=== PATIENT | female | born 1980 | race Two or more races ===

== ENCOUNTER 2020-07-03 07:27 | Outpatient (REF) | payer OTHER, SELFPAY ==
[2020-07-03 08:26] LABS: Glucose Urine UA NEG (NEG); Leukocyte Esterase Urine TRACE (NEG); Nitrite Urine POS (NEG); PH 6.5 (5.0-8.0); Urine Blood 3+ (NEG); Urine Ketones NEG (NEG); Urine Protein NEG (NEG-TRACE)
[2020-07-03 08:38] LABS: Appearance Urine HAZY; Color Urine STRAW
[2020-07-03 08:48] LABS: Bacteria Urine 4+ /LPF; Squamous Epithelial Cell Urine 2+ /LPF
[2020-07-03 09:39] LABS: Alanine Aminotransferase 18 U/L (0-31); Albumin Level 4.4 g/dL (3.5-5.0); Alkaline Phosphatase 54 U/L (39-117); Anion Gap 15 (12-20); Aspartate Amino Transferase 18 U/L (5-31); Bilirubin Total 0.6 mg/dL (0.0-1.0); Blood Urea Nitrogen 8 mg/dL (9-16); Calcium 9.3 mg/dL (8.4-10.2); Carbon Dioxide 24 mmol/L (22-29); Chloride 104 mmol/L (96-108); Cholesterol 178 mg/dL; Estimated Glomerular Filt Rate > 60; Glucose Fasting 87 mg/dL (60-99); HDL Cholesterol 52 mg/dL; LDL Cholesterol Calculated 109 mg/dl; Potassium 4.4 mmol/l (3.3-5.1); Sodium 139 mmol/L (135-145); Total Protein 7.4 g/dL (6.5-8.0); Triglycerides 89 mg/dL
== END 2020-07-03 07:28 | disposition home or self-care (01) ==
LOC: HO.LAB 07:27
PROVIDERS: PCP Internal Medicine; Visit Provider Internal Medicine
DX: E78.5 Hyperlipidemia, unspecified (principal); Z83.3 Family history of diabetes mellitus; R30.0 Dysuria
CPT/HCPCS: 36415; 80053; 80061; 81001; 87086; 87088; 87186

== ENCOUNTER 2020-07-09 17:23 | Outpatient (REF) | payer OTHER, SELFPAY | END 2020-07-09 17:24 | disposition home or self-care (01) | LOC: HO.LAB 17:23 | PROVIDERS: PCP Internal Medicine; Visit Provider Internal Medicine | DX: Z20.822 Contact with and (suspected) exposure to COVID-19 (principal) | CPT/HCPCS: 36415; C9803; U0003 ==

== ENCOUNTER → 2020-10-04 13:09 | Outpatient (REF) | payer OTHER, SELFPAY ==
--- NOTE | 2020-10-04 13:20 | ECG_ITS ---
Hook-up date: 2020-10-04 13:28:00 Duration: 47:59:00 Test Indications: PALPITATIONS Medications: [id number] QRS complexes 1 Ventricular ectopics which represent <1 % of total QRS comp. 92 Supraventricular ectopics which represent <1 % of total QRS comp. * Paced QRS complexs which represent % of total QRS comp. VENTRICULAR ECTOPY 1 Isolated 0 Bigeminal Cycles 0 Couplets 0 Runs 0 Beats in Runs * Beats LONGEST at * BPM at :: -- * Beats FASTEST at * BPM at :: -- SUPRAVENTRICULAR ECTOPY 79 Isolated 4 Couplets 1 Runs 5 Beats in Runs 5 Beats LONGEST at 151 BPM at 16:20:57 2020-10-05 5 Beats FASTEST at 151 BPM at 16:20:57 2020-10-05 HEART RATES 56 MIN at 22:16:34 2020-10-04 79 AVG 132 MAX at 16:57:14 2020-10-04 LONGEST RR 1.7840 secs at 22:16:30 2020-10-04 S-T LEVELS Channel 1 - 128 mm at 13:28:00 2020-10-04 - 128 mm at 13:28:00 2020-10-04 Channel 2 - 128 mm at 13:28:00 2020-10-04 - 128 mm at 13:28:00 2020-10-04 Channel 3 - 128 mm at 03:24:71 -- - 128 mm at 03:24:71 Underlying rhythm is sinus; Average rate 78/min; range 56-132/min; Occasional supraventricular ectopy; mostly isolated; one short run of 5 beats; Transient AV block (one episode) during sleep hours; Longest pause 1.78sec (sleep hours); No sustained arrhythmias; Patient did not report any symptoms in the diary Referred By: Dana Estes Overread By: ISIDRO VASQUEZ
== END ==
LOC: HO.CARD 13:09
PROVIDERS: PCP Internal Medicine; Visit Provider Internal Medicine
DX: R00.2 Palpitations (principal)
CPT/HCPCS: 93225; 93226

== ENCOUNTER 2021-05-07 15:00 | Outpatient (RCR) | payer OTHER, SELFPAY ==
--- NOTE | 2021-04-23 10:58 | MHC.PT.EP ---
[facility] [place] Office [place] Office [place] Office [address] Christina Brito [address] [phone] F: [phone] F: [phone] F: [phone] F: [phone] Physical Therapy Plan of Care Date of Evaluation: Date of Surgery: Diagnosis: Dorsalgia,unspecified Assessment: Pt is a 40yo F who presents to PT with pain for about ~1-2 months throughout her neck/shoulder/back. She reports she was working from home and the pain increased when she returned to her office about ~2 months ago as she works at a computer most of the day. She presents with current impairments in pain, decreased ROM throughout neck/B shoulders/back, decreased strength, soft tissue restrictions, and impaired posture. She has intermittent radiating symptoms into her RUE. She is limited functionally by prolonged sitting, prolonged standing and walking, driving and sleeping. She is a good candidate for skilled PT services to address current impairments in order to facilitate return to PLOF. She will benefit from PT services 2x/week for 4 weeks and will be re-assessed at that time. Frequency and Duration: The patient will be seen 2x/week for 4 weeks Short Term Goals: Pt will be I with HEP to promote self management of symptoms Pt will demonstrate improvements in postural awareness throughout the day Pt will report pain 8/10 or less after ADLs Chemistry Associate Goals: Pt will tolerate sitting >30 min with pain < 5/10 to assist with work related tasks Pt will demonstrate improvements in functional mobility as evidenced by statistically significant improvement in Modified Oswestry Low Back Pain Disability Questionnaire Treatment Plan: Modalities to reduce pain, spasms and effusion. Manual therapy to restore motion and function. Therapeutic exercise to improve strength and flexibility. Neuromuscular re-education for posture and balance. Therapeutic activities to return to functional activities of daily living. Electronically signed by: Cathi Perla, PT, DPT Please sign and return to therapist. Thank you for your referral.
--- NOTE | 2021-05-20 15:45 | MHC.PT.DC ---
[facility] [place] Office [place] Office [place] Office [address] Christina Brito [address] [phone] F: [phone] F: [phone] F: [phone] F: [phone] Physical Therapy Discharge Report Diagnosis: Dorsalgia,unspecified Date of Surgery: Date of Evaluation: 04/22/21 Date of Discharge: 05/20/21 Treatments to Date: 5 Cancellations to Date: 1 No Shows to Date: 3 Discharge Status: Visit Non-compliance Discharge Summary: Pt last attended skilled PT visit was 05/12/21. She has had 1 cancellation and 3 no-shows since last attended visit. [place] is being [place] [facility] [place] and visit non-compliance. Pt current level of function unknown at this time. Electronically signed by: Cathi Perla, PT, DPT Please sign and return to therapist. Thank you for your referral.
== END 2021-05-20 15:42 | disposition home or self-care (01) ==
LOC: HO.PT 15:00
PROVIDERS: PCP Internal Medicine; Visit Provider Internal Medicine
DX: M54.9 Dorsalgia, unspecified (principal)
CPT/HCPCS: 97110; 97140; 97150; 97162

== ENCOUNTER 2021-07-10 14:46 | Outpatient (REF) | payer OTHER, SELFPAY ==
[2021-07-10 15:59] LABS: Binax Internal Control QC Valid; Binax Now Covid-19 Ag Positive (Negative)
== END 2021-07-10 14:47 | disposition home or self-care (01) ==
LOC: HO.LAB 14:46
PROVIDERS: Visit Provider Internal Medicine
DX: Z20.822 Contact with and (suspected) exposure to COVID-19 (principal)
CPT/HCPCS: C9803

== ENCOUNTER 2021-07-15 14:36 | Emergency (ER) | payer OTHER, SELFPAY ==
--- NOTE | ~2021-07-15 | XR_ITS ---
EXAMINATION: XR CHEST CLINICAL INFORMATION: Cough and shortness of breath. Covid positive COMPARISON: None TECHNIQUE: Frontal view of the chest was obtained. FINDINGS: No significant abnormality is noted involving the heart, lungs, mediastinum, bony thorax or soft tissues. XR/XR chest 1V IMPRESSION: Unremarkable examination.
[2021-07-15 15:27] VITALS: BP 131/84; PULSE 117; RESP 18; TEMP 37.2; O2SAT 98; BMI 27.4
--- NOTE | 2021-07-15 16:47 | ED.URI ---
HPI - URI/Sore Throat General Chief Complaint: Upper Respiratory Symptoms Stated Complaint: dif breathing COVID+ Time Seen by Provider: 07/15/21 16:02 Source: patient Mode of arrival: ambulatory Limitations: no limitations History of Present Illness HPI Narrative: 40-year-old female came in for evaluation of shortness of breath. Patient was diagnosed COVID positive 5 days ago, return today for persistent coughing and sore throat and shortness of breath. Patient has no appetite to eat but able to keep fluids down. Patient declined any recent travel, known lower extremities swelling or tenderness, chest pain only with coughing. Related Data Previous Rx's Medication Instructions Recorded sumatriptan succinate 50 mg tablet 50 mg PO Q2-4H PRN 30 Days #9 tab 01/08/21 cyclobenzaprine 10 mg tablet 10 mg PO BEDTIME #14 tab 02/05/21 meloxicam 15 mg tablet 15 mg PO DAILY #14 tab 02/05/21 amitriptyline 10 mg tablet 10 mg PO BEDTIME #30 tab 05/07/21 codeine 10 mg-guaifenesin 100 mg/5 5 ml PO Q6H PRN #120 ml 07/15/22 mL oral liquid codeine 6.3 mg-guaifenesin 100 10 ml PO Q4-6H PRN #473 ml 07/15/22 mg/5 mL oral liquid codeine 6.3 mg-guaifenesin 100 10 ml PO Q4-6H PRN #473 ml 18/22 mg/5 mL oral liquid codeine 7.5 mg-guaifenesin 225 5 ml PO Q6H PRN #473 ml 18/22 mg/5 mL oral liquid Allergies Allergy/AdvReac Type Severity Reaction Status Date / Time No Known Allergies Allergy Verified 08/19/20 13:23 Review of Systems Review of Systems: All other systems are reviewed and are negative Constitutional: Reports as per HPI and Reports no additional constitutional complaints Eyes: Reports as per HPI and Reports no additional eye complaints Reports system reviewed and no additional complaints, except as documented Cardiovascular: Reports as per HPI and Reports no additional cardiovascular complaints Respiratory: Reports as per HPI and Reports no additional respiratory complaints Gastrointestinal: Reports as per HPI and Reports no additional gastrointestinal complaints Genitourinary: Reports no additional female genitourinary complaints Musculoskeletal: Reports no additional musculoskeletal complaints Skin/Breast: Reports system reviewed and no additional complaints, except as docu Psychiatric: Reports no additional psychiatric complaints Endocrine: Reports no additional endocrine complaints Hematologic/Lymphatic: Reports no additional hematologic/lymphatic complaints Allergic/Immunologic: Reports no additional allergic/immunologic complaints Reports system reviewed and no additional complaints, except as documented and Reports Abnormal speech present [facility] Past Medical History Medical History Back pain Family history of diabetes mellitus Migraines Neck pain Palpitations Palpitations Surgical History History of appendectomy History of section Family History Family History Father Liver failure Alcoholism Mother No problems noted. Maternal Grandmother Hypertension Maternal Grandfather Hypertension Social History Social History Alcohol intake: never Advance Directives: No Advance Directives Information Provided: No Physical Exam Vital Signs: Vital Signs: Last Vital Signs Temp 98.9 F 07/15/21 15:27 Pulse 117 H 07/15/21 15:27 Resp 18 07/15/21 15:27 BP 131/84 07/15/21 15:27 Pulse Ox 98 07/15/21 15:27 BMI result Body Mass Index 27.4 Vital signs have been reviewed as appeared to be correct. Blood pressure normal. Heart rate elevated. Respiration rate normal. Temperature normal. Oxygen saturation normal. Appearance: Alert. Oriented X3. No acute distress. Head: Normal external exam. Normocephalic. Atraumatic. No Petty signs noted. No raccoon eyes noted Eyes: PERRLA. EOMI. Conjunctiva and sclera normal. Eyelids normal. ENT: TM's Normal. Pharynx normal. Uvula midline. Moist mucous membranes. No trismus noted. No drooling noted. No muffled voice noted. Neck: Normal inspection. Neck supple. FROM. No adenopathy. Thyroid Normal. No meningeal signs. No neck mass noted. CVS: Normal heart rate and rhythm. Heart sound normal. No murmurs noted. Pulses normal throughout. Respiratory: No respiratory distress. Painless inspiration. Breath sounds normal. No wheezes/rales/rhonchi noted. Chest nontender. No accessory muscle usage noted or decreased air movement noted. Abdomen: Soft and nontender. Bowel sounds normal in all 4 quadrants. No distention noted. No organomegaly noted. No visible injury noted. Back: No CVA tenderness. Full range of motion noted. Skin: Skin warm and dry. Normal skin color. Normal skin turgor. No rashes/lesions/lacerations noted. Extremities: No lower extremity edema. Extremities exhibit normal range of motion. Extremities nontender. Neuro: Oriented X 3. Cranial nerve exam: II-XII are grossly intact No motor deficit. No sensory deficit. Reflexes normal. Course Course Course Narrative: Assessment and plan. 40-year-old female test positive for COVID 4 days ago, returned today for persistent of coughing and generalized weakness with decreased appetite. X-ray show no abnormality. Patient's oxygenation is 98% on room air. Will prescribe coughing medicine and NSAIDs. MDM - URI/Sore Throat Imaging Data Chest x-ray: Attestation: I personally reviewed and interpreted this imaging study as follows: Radiologist's impression: No acute pathology. Discharge Plan Discharge Clinical Impression: COVID-19 virus infection Patient Disposition: Home, Self-Care Instructions: COVID-19 (Coronavirus Disease 2019) (ED) Prescriptions: New codeine-guaifenesin 6.3-100 mg/5 mL liquid 10 ml PO Q4-6H PRN (Reason: allergy symptoms) Qty: 473 RF: 0 codeine-guaifenesin 6.3-100 mg/5 mL liquid 10 ml PO Q4-6H PRN (Reason: cough) Qty: 473 RF: 0 codeine-guaifenesin 7.5-225 mg/5 mL liquid 5 ml PO Q6H PRN (Reason: cough) Qty: 473 RF: 0 codeine-guaifenesin 10-100 mg/5 mL liquid 5 ml PO Q6H PRN (Reason: cough) Qty: 120 RF: 0 No Action sumatriptan succinate 50 mg tablet 50 mg PO Q2-4H PRN (Reason: migraine headache) 30 Days Qty: 9 RF: 6 amitriptyline 10 mg tablet 10 mg PO BEDTIME Qty: 30 RF: 3 cyclobenzaprine 10 mg tablet 10 mg PO BEDTIME Qty: 14 RF: 0 meloxicam 15 mg tablet 15 mg PO DAILY Qty: 14 RF: 0 Referrals: Physician,Unknown J [Primary Care Provider] - 1 week Stand Alone Forms: Work/School Release
[2021-07-15] MEDS: Ibuprofen 800 MG TABLET PO (17:08)
[2021-07-15 17:59] VITALS: BP 128/74; PULSE 117; O2SAT 96
== END 2021-07-15 18:12 | disposition home or self-care (01) ==
LOC: HO.ED 17:02
PROVIDERS: Emergency Provider Emergency Medicine
DX: U07.1 COVID-19 (principal)
CPT/HCPCS: 71045; 99283

== ENCOUNTER 2021-09-02 07:24 | Outpatient (REF) | payer OTHER, SELFPAY ==
[2021-09-02 07:40] LABS: MANUAL DIFF FLAG NO
[2021-09-02 08:04] LABS: Basophils Percent Auto 0.8 % (0-2); Eosinophils Absolute Auto 0.1 X10*3/uL (0.0-0.4); Eosinophils Percent Auto 1.3 % (0-4); Hematocrit 39.5 % (37.0-47.0); Hemoglobin 13.3 g/dl (12.0-16.0); Imm Gran Abs Auto 0.02 X10*3/uL (0.00-0.03); Imm Gran Pct Auto 0.4 % (0.0-0.4); Lymphocytes Absolute Auto 2.3 X10*3/uL (1.2-4.9); Lymphocytes Percent Auto 43.6 % (20-40); Mean Corpuscular HGB Conc 33.7 g/dl (31.0-35.0); Mean Corpuscular Hemoglobin 30.5 pg (27.0-33.0); Mean Corpuscular Volume 90.6 fL (80.0-98.0); Mean Platelet Volume 11.3 fL (9.4-12.3); Monocytes Absolute Auto 0.5 X10*3/uL (0.1-1.2); Monocytes Percent Auto 8.9 % (2-11); Neutrophils Absolute Auto 2.4 x10*3/uL (2.0-8.3); Platelet Count 305 X10*3/uL (160-400); Red Blood Count 4.36 X10*6/uL (4.20-5.50); Red Cell Distribution Width 12.9 % (11.0-16.0); White Blood Count 5.3 X10*3/uL (4.8-10.8)
[2021-09-02 08:26] LABS: Alanine Aminotransferase 15 U/L (0-31); Albumin Level 4.5 g/dL (3.5-5.0); Alkaline Phosphatase 54 U/L (39-117); Anion Gap 10 (12-20); Aspartate Amino Transferase 19 U/L (5-31); Bilirubin Total 0.7 mg/dL (0.0-1.0); Blood Urea Nitrogen 7 mg/dL (9-16); Calcium 9.7 mg/dL (8.4-10.2); Carbon Dioxide 29 mmol/L (22-29); Chloride 105 mmol/L (96-108); Estimated Glomerular Filt Rate > 60; Glucose Fasting 85 mg/dL (60-99); Potassium 4.3 mmol/L (3.3-5.1); Sodium 140 mmol/L (135-145); Total Protein 7.7 g/dL (6.5-8.0)
[2021-09-02 08:29] LABS: B Type Natriuretic Peptide 79 pg/mL (<100)
[2021-09-02 08:30] LABS: Color Urine YELLOW; Glucose Urine UA NEG (NEG); Leukocyte Esterase Urine NEG (NEG); Nitrite Urine NEG (NEG); UACC Culture Trigger NO; Urine Blood 2+ (NEG); Urine Ketones NEG (NEG); Urine Protein NEG (NEG-TRACE)
[2021-09-02 08:32] LABS: Appearance Urine HAZY
[2021-09-02 08:40] LABS: Mucus Urine TRACE /LPF; Squamous Epithelial Cell Urine 1+ /LPF; WBC Urine 0 /HPF (0-4)
[2021-09-06 13:21] LABS: Vitamin D 25-OH, D2 <4 ng/mL; Vitamin D 25-OH, D3 32 ng/mL; Vitamin D 25-OH, Total 32 ng/mL (30-100)
== END 2021-09-02 07:25 | disposition home or self-care (01) ==
LOC: HO.LAB 07:24
PROVIDERS: PCP Internal Medicine; Visit Provider Internal Medicine
DX: D64.9 Anemia, unspecified (principal); G43.909 Migraine, unspecified, not intractable, without status migrainosus; E55.9 Vitamin D deficiency, unspecified; R06.00 Dyspnea, unspecified
CPT/HCPCS: 36415; 80053; 81001; 82306; 83880; 85025

== ENCOUNTER 2022-05-12 09:46 | Outpatient (REF) | payer OTHER, SELFPAY ==
[2022-05-12 16:40] LABS: CT PCR NOT DETECTED (Not Detect.); NG PCR NOT DETECTED (Not Detect.)
[2022-05-13 13:56] LABS: BV Int Neg Control Negative (Negative); BV Int Pos Control Positive (Positive)
[2022-05-15 23:47] LABS: HPV mRNA E6/E7 rflx Not Detected (Not Detected)
== END 2022-05-12 09:47 | disposition home or self-care (01) ==
LOC: HO.LNP 09:46
PROVIDERS: Visit Provider Advanced Practice Midwife
DX: Z01.419 Encounter for gynecological examination (general) (routine) without abnormal findings (principal); Z11.51 Encounter for screening for human papillomavirus (HPV); R30.0 Dysuria
CPT/HCPCS: 87086; 87480; 87491; 87510; 87591; 87624; 87660; 88142

== ENCOUNTER 2022-06-12 08:50 | Outpatient (REF) | payer OTHER, SELFPAY ==
--- NOTE | ~2022-06-12 | MM_ITS ---
EXAMINATION: MM SCREENING DIGITAL BREAST TOMOSYNTHESIS, BILATERAL CLINICAL INFORMATION: Screening. Asymptomatic. The lifetime risk of breast cancer based on the Tyrer-Cuzick Model is 9%. COMPARISON: Mammography: 01/15/2020 (new baseline). TECHNIQUE: Digital breast tomosynthesis is performed in both the craniocaudal and mediolateral oblique views along with computer-aided detection (CAD). Synthesized 2D images are generated from the tomosynthesis. FINDINGS: The breasts are heterogeneously dense, which may obscure small masses (ACR BI-RADS breast composition Category c). Parenchymal pattern is similar to prior new baseline mammography. There is no significant mass or interval developing density or architectural abnormality. No abnormal calcifications. The axilla and skin contours are unremarkable. No significant changes. MM/MM tomosynthesis screening BI IMPRESSION: No mammographic evidence of malignancy. ASSESSMENT: BI-RADS 1: Negative RECOMMENDATION: Routine annual mammography screening. This patient's information was entered into a reminder system with a target due date for their next mammogram.
== END 2022-06-12 08:51 | disposition home or self-care (01) ==
LOC: HO.MAMMO 08:50
PROVIDERS: PCP Internal Medicine; Visit Provider Advanced Practice Midwife
DX: Z12.31 Encounter for screening mammogram for malignant neoplasm of breast (principal)
CPT/HCPCS: 77063; 77067

== ENCOUNTER 2022-07-14 14:11 | Outpatient (REF) | payer OTHER, SELFPAY ==
--- NOTE | ~2022-07-14 | XR_ITS ---
EXAMINATION: LUMBAR SPINE AND RIGHT SCAPULA. CLINICAL INFORMATION: Dorsalgia COMPARISON: None TECHNIQUE: 3 views lumbar spine and 3 views right scapula FINDINGS: Lumbar spine: There is mild straightening of lumbar lordosis. The vertebral heights and alignment is normal. No visible acute fracture, dislocation or subluxation seen. There is moderate stool seen throughout the colon. Right shoulder: The glenohumeral joint and AC joint space is maintained. The right scapula appears intact. No visible acute fracture, dislocation or subluxation seen. The soft tissues are normal. XR/XR scapula RT IMPRESSION: 1. Unremarkable lumbar spine exam. 2. Unremarkable right shoulder exam. 3. Unremarkable right scapula exam. 4. Moderate constipation. No visible acute fracture or dislocation seen.
--- NOTE | ~2022-07-14 | XR_ITS ---
EXAMINATION: LUMBAR SPINE AND RIGHT SCAPULA. CLINICAL INFORMATION: Dorsalgia COMPARISON: None TECHNIQUE: 3 views lumbar spine and 3 views right scapula FINDINGS: Lumbar spine: There is mild straightening of lumbar lordosis. The vertebral heights and alignment is normal. No visible acute fracture, dislocation or subluxation seen. There is moderate stool seen throughout the colon. Right shoulder: The glenohumeral joint and AC joint space is maintained. The right scapula appears intact. No visible acute fracture, dislocation or subluxation seen. The soft tissues are normal. XR/XR lumbar spine 2-3V IMPRESSION: 1. Unremarkable lumbar spine exam. 2. Unremarkable right shoulder exam. 3. Unremarkable right scapula exam. 4. Moderate constipation. No visible acute fracture or dislocation seen.
== END 2022-07-14 14:12 | disposition home or self-care (01) ==
LOC: HO.XRAY 14:11
PROVIDERS: PCP Internal Medicine; Visit Provider Internal Medicine
DX: M89.8X1 Other specified disorders of bone, shoulder (principal); M54.9 Dorsalgia, unspecified
CPT/HCPCS: 72100; 73010

== ENCOUNTER 2022-11-03 13:55 | Outpatient (REF) | payer OTHER, SELFPAY ==
[2022-11-06 04:18] LABS: HPV mRNA E6/E7 rflx Not Detected (Not Detected)
== END 2022-11-03 13:56 | disposition home or self-care (01) ==
LOC: HO.LNP 13:55
PROVIDERS: PCP Internal Medicine; Visit Provider Advanced Practice Midwife
DX: Z12.4 Encounter for screening for malignant neoplasm of cervix (principal); Z11.51 Encounter for screening for human papillomavirus (HPV); R87.615 Unsatisfactory cytologic smear of cervix
CPT/HCPCS: 87624; 88142; 99212

== ENCOUNTER 2023-01-04 14:10 | Outpatient (AMB) | payer OTHER, SELFPAY ==
--- NOTE | 2023-01-04 14:25 | MHC.OFFVIS ---
Intake Vital Signs 01/04/23 14:28 Height 5 ft 2 in Weight 141 lb BMI 25.8 BP 133/63 Blood Pressure Location Lt brachial Position Sitting Pulse 77 Intake Visit Reasons: Melena Intake Note: Deanna presents in the office as a new patient for melena. CC: She states that she is having blood in her stool. This came about when she had a virus back in October. After that she was having burning and pains in the stomach. It primarily happens when she eats fatty foods. Chief Legal Officer Required: Yes Chief Legal Officer Name: Kyrie [id number] Allergies No Known Allergies Allergy (Verified 01/04/23 14:33) HPI HPI Comments History of Present Illness Details This is a 42 y.o F with no significant PMH who is here for abdominal pain. Pt states that a few months she had a gi bug wth which she had significant abdominal cramping, N,V and diarrhea. Now all the sx are gone except she continues to have intermittent abd cramping with burning sensation. Occurs postprandially even when the food is not fatty or spicy. Assoc with constipation but does not think passing BM particularly helps with abd cramping. Taking juan tea helps. Fam hx pertinent for celiac dz in her mom. PFSH Medical History Back pain Dyspnea Family history of diabetes mellitus Migraines Neck pain Palpitations Palpitations Surgical History History of appendectomy History of section Family History Father Liver failure Alcoholism Substance use disorder Mother Osteoporosis Fibromyalgia Maternal Grandmother Hypertension Maternal Grandfather Hypertension Social History Household Members: Family Housing: Apartment Alcohol intake: never Patient Tobacco Use Status: Never used Tobacco e-Cigarette/Vaping Use: Never Used Second Hand Smoke Exposure: No service: No Current occupational status: employed Current occupation: Mental health therapist Sexual orientation: Straight/Heterosexual Gender identity: Female Cognitive needs: No Hearing needs: No Vision needs: No Review of Systems Const All systems reviewed & are unremarkable except as noted in HPI and below Physical Exam Vital Signs: Last Vital Signs Pulse 77 01/04/23 14:28 BP 133/63 01/04/23 14:28 BMI result Body Mass Index 25.8 Gen appear: NAD HEENT: nonicteric, no cervical lymphadenopathy Chest: CTA CVS: Regular S1/S2 Abd: soft, nontender, nondistended, bowel sounds + Ext: no peripheral edema Neuro: A/Ox3, noted to move all extremities spontaneously Psych: interacting appropriately Assessment & Plan Assessment & Plan (1) Abdominal pain: Code(s): R10.9 - Unspecified abdominal pain (2) Constipation: Code(s): K59.00 - Constipation, unspecified Plan Ddx include post-infectious IBS, GERD, GB disease, celiac. Work up ordered as below. Omeprazole 20mg prescribed as therapeutic trial. Also prescribed bentyl as per patient's request however she was advised that it may make constipation worse. Follow up in 6 weeks. Orders: Orders US abdomen complete Today R10.9 - Unspecified abdominal pain Immunoglobulin A Today R10.9 - Unspecified abdominal pain Transglutaminase IgA Today R10.9 - Unspecified abdominal pain Liver Panel Today R10.9 - Unspecified abdominal pain Medications: New omeprazole 20 mg PO DAILY 6 weeks 42 caps 0RF dicyclomine 10 mg PO QID 60 caps 0RF Coding Level of Care Code New Pt Level 4 (38524) Diagnoses Abdominal pain R10.9 Constipation K59.00
[2023-01-04 14:28] VITALS: BP 133/63; PULSE 77; BMI 25.8
== END 2023-01-04 14:53 | disposition home or self-care (01) ==
PROVIDERS: PCP Internal Medicine; Visit Provider Internal Medicine
DX: R10.9 Unspecified abdominal pain (principal); K59.00 Constipation, unspecified
CPT/HCPCS: 99204

== ENCOUNTER → 2023-01-04 14:10 | Outpatient (BNVA) | payer OTHER, SELFPAY | PROVIDERS: PCP Internal Medicine; Visit Provider Internal Medicine | DX: R10.9 Unspecified abdominal pain (principal); K59.00 Constipation, unspecified | CPT/HCPCS: 99202 ==

== ENCOUNTER 2023-01-18 08:17 | Outpatient (REF) | payer OTHER, SELFPAY ==
--- NOTE | ~2023-01-18 | US_ITS ---
EXAMINATION: US ABDOMEN COMPLETE CLINICAL INFORMATION: Unspecified abdominal pain. COMPARISON: None available. TECHNIQUE: Real-time imaging of the abdominal viscera. Limited visualization due to bowel gas. FINDINGS: PANCREAS: Limited visualization of pancreatic tail and head. Imaged portion of pancreatic body is unremarkable. ABDOMINAL AORTA: Nonaneurysmal. INFERIOR VENA CAVA: Visualized portions are normal. LIVER: Mild diffuse increase in echogenicity of the liver is characteristic of primary hepatocellular disease, possibly due to hepatic steatosis and further limits visualization. GALLBLADDER: No gallstones. Limited visualization. COMMON BILE DUCT: Normal in caliber measuring 0.5 cm in diameter. RIGHT KIDNEY: No hydronephrosis. No renal calculi. Limited visualization. The kidney measures 11.0 cm in maximum dimension. LEFT KIDNEY: No hydronephrosis. No renal calculi. Limited visualization. The kidney measures 11.1 cm in maximum dimension. SPLEEN: Normal. The spleen measures 10.1 cm in maximum dimension. FREE FLUID: None. US/US abdomen complete IMPRESSION: Mild diffuse increase in echogenicity of the liver is characteristic of primary hepatocellular disease, possibly due to hepatic steatosis and further limits visualization.
== END 2023-01-18 08:18 | disposition home or self-care (01) ==
LOC: HO.US 08:17
PROVIDERS: PCP Internal Medicine; Visit Provider Internal Medicine
DX: R10.9 Unspecified abdominal pain (principal)
CPT/HCPCS: 76700

== ENCOUNTER 2023-02-01 07:03 | Outpatient (REF) | payer OTHER, SELFPAY ==
[2023-02-01 07:21] LABS: MANUAL DIFF FLAG NO
[2023-02-01 08:08] LABS: Basophils Absolute Auto 0.1 X10*3/uL (0.0-0.2); Eosinophils Absolute Auto 0.1 X10*3/uL (0.0-0.4); Hematocrit 40.2 % (37.0-47.0); Hemoglobin 13.6 g/dl (12.0-16.0); Imm Gran Abs Auto 0.02 X10*3/uL (0.00-0.03); Imm Gran Pct Auto 0.4 % (0.0-0.4); Lymphocytes Absolute Auto 2.1 X10*3/uL (1.2-4.9); Lymphocytes Percent Auto 40.6 % (20-40); Mean Corpuscular HGB Conc 33.8 g/dl (31.0-35.0); Mean Corpuscular Hemoglobin 30.8 pg (27.0-33.0); Mean Platelet Volume 11.9 fL (9.4-12.3); Monocytes Absolute Auto 0.4 X10*3/uL (0.1-1.2); Monocytes Percent Auto 7.5 % (2-11); Neutrophils Absolute Auto 2.6 x10*3/uL (2.0-8.3); Neutrophils Percent Auto 49.5 % (45-73); Platelet Count 315 X10*3/uL (160-400); Red Blood Count 4.42 X10*6/uL (4.20-5.50); Red Cell Distribution Width 12.3 % (11.0-16.0); White Blood Count 5.2 X10*3/uL (4.8-10.8)
[2023-02-01 08:46] LABS: Alanine Aminotransferase 12 U/L (0-31); Albumin Level 4.5 g/dL (3.5-5.0); Alkaline Phosphatase 58 U/L (39-117); Anion Gap 13 (12-20); Aspartate Amino Transferase 15 U/L (5-31); Bilirubin Direct 0.2 mg/dL (0.0-0.5); Bilirubin Total 0.5 mg/dL (0.0-1.0); Blood Urea Nitrogen 8 mg/dL (9-16); Calcium 9.6 mg/dL (8.4-10.2); Carbon Dioxide 23 mmol/L (22-29); Chloride 107 mmol/L (96-108); Cholesterol 157 mg/dL; Estimated Glomerular Filt Rate > 60; Glucose Fasting 90 mg/dL (60-99); HDL Cholesterol 54 mg/dL; LDL Cholesterol Calculated 92 mg/dl; Sodium 139 mmol/L (135-145); Total Protein 7.7 g/dL (6.5-8.0); Triglycerides 56 mg/dL
[2023-02-01 09:02] LABS: Thyroid Stimulating Hormone 2.05 uIU/mL (0.32-4.0)
[2023-02-02 13:58] LABS: Transglutaminase IgA <1.0 U/mL
[2023-02-02 16:37] LABS: Immunoglobulin A 177 mg/dL (47-310)
== END 2023-02-01 07:04 | disposition home or self-care (01) ==
LOC: HO.LAB 07:03
PROVIDERS: Absent Provider Internal Medicine; PCP Internal Medicine; Visit Provider Internal Medicine
DX: Z00.00 Encounter for general adult medical examination without abnormal findings (principal); R00.2 Palpitations; E78.5 Hyperlipidemia, unspecified; K92.1 Melena; R10.9 Unspecified abdominal pain
CPT/HCPCS: 36415; 80053; 80061; 80076; 82248; 82784; 84443; 85025; 86364